=== PATIENT | female | born 1965 | race African-American/Black ===

== ENCOUNTER → 2016-09-09 | Day surgery (SDC) | payer OTHER ==
[~2016-09-09] MED LIST: ALBUTEROL17 GM INH; AMLODIPINE BESY10 MG PO; ANEXSIA 7.5/3251 TA1 PO; B COMPLEX1 CA1 PO; BYDUREON2 MG SQ; CYANOCOBALAM1000 MCG PO; FLEXERIL10 MG PO; GLUCOPHAGE500 M1 PO; MULTI VITAMIN1 EACH PO; NAPROSYN500 MG PO; OMEPRAZOLE20 M1 PO; ONDANSETRON HCL4 MG PO; PHENERGAN25 M1 PO; PRINIVIL40 MG PO; PYRIDOXINE HCL PO; SPIRONOLACTONE50 MG PO; SYMBICORT INH; TIMOPTIC 0.5% OP5 M2 OS; TRADJENTA5 MG PO; VITAMIN D-32000 UNI1 PO; VITAMIN D31000 UNIT PO; XALATAN OU
--- NOTE | ~2016-09-09 | OR ---
Unit #: [id number] #: [id number] Patient: VALERIA AVILA [id number] [address] [place], [place] [address] [id number] MR#: [id number] NAME: VALERIA AVILA. ROOM: Date of Procedure: 09/09/2016 Admission Date: 09/09/2016 Surgeon: Vicente Soto M.D. : 1965 Attending Physician: Vicente Soto M.D. Referring Physician: Vicente Soto M.D. Primary Care Physician: Yasmin Mendoza M.D. OPERATIVE REPORT PREOPERATIVE DIAGNOSIS Dysphagia. POSTOPERATIVE DIAGNOSIS Mild gastritis. PROCEDURE PERFORMED Esophagogastroduodenoscopy with biopsy for Helicobacter pylori. ANESTHESIA IV sedation. COMPLICATIONS None. INDICATIONS FOR PROCEDURE The patient is a 51-year-old with mild dysphagia that seems different from her restriction from her lap-band. She presents for endoscopic evaluation. DESCRIPTION OF PROCEDURE The patient was taken to the operating theater and placed in left lateral decubitus position. IV sedation was initiated. EGD scope was passed under direct vision into the esophagus. Esophagus was grossly normal. I did not see any inflammation of the distal esophagus. There was some restriction at the GE junction secondary to the band, but I was able to pass the scope easily. Stomach showed some mild gastritis mainly at the antrum. A biopsy was taken for H. pylori. The duodenum was normal. I retroflexed the scope. I did not see any evidence of erosion or problem. She tolerated the procedure well and sent to recovery room in good condition. I asked her to call for results of biopsy in one week. Dictated by... Yemi Vargas/denisse TD: 09/09/2016 15:57 JOB #: [id number] Unit #: [id number] #: [id number] Patient: VALERIA AVILA OPERATIVE REPORT X Vicente Soto MD PROCEDURE OPERATIVE NOTE
== END | disposition home or self-care (01) ==
LOC: COPS 12:36
PROVIDERS: Surgery
PROC: 0DB78ZX Excision of Stomach, Pylorus, Via Natural or Artificial Opening Endoscopic, Diagnostic (ICD-10-PCS; principal; 2016-09-09 14:00)
DX: K29.70 Gastritis, unspecified, without bleeding (principal); K21.9 Gastro-esophageal reflux disease without esophagitis; I10 Essential (primary) hypertension; R13.10 Dysphagia, unspecified; E11.9 Type 2 diabetes mellitus without complications; Z79.84 Long term (current) use of oral hypoglycemic drugs; G89.29 Other chronic pain; M54.9 Dorsalgia, unspecified; J45.909 Unspecified asthma, uncomplicated; H40.9 Unspecified glaucoma; Z88.8 Allergy status to other drugs, medicaments and biological substances; Z98.84 Bariatric surgery status; Z88.0 Allergy status to penicillin; Z88.1 Allergy status to other antibiotic agents
CPT/HCPCS: 82947; 87077